=== PATIENT | male | born 1990 | race Hispanic/Latino ===

== ENCOUNTER → 2023-01-21 | Outpatient (CLI) | payer SELFPAY ==
--- NOTE | 2023-01-21 09:23 | US_ITS ---
STUDY: ABDOMINAL ULTRASOUND - RIGHT UPPER QUADRANT REASON FOR VISIT: Male, 32 years old RUQ PAIN TECHNIQUE: Ultrasound evaluation of the right upper quadrant was performed with real-time and static osorio-scale imaging. TECHNICAL QUALITY: Adequate. COMPARISON: None. FINDINGS: Liver: The liver measures 15.5 cm. There is increased echogenicity consistent with fatty infiltration. The bile ducts are within normal limits. There is hepatic color flow. The direction of portal flow is hepatopetal. There is no demonstrated mass lesion. Gallbladder: There is a contracted gallbladder. The gallbladder wall measures 2.5 mm. There is a positive sonographic Hall''s sign. There is no pericholecystic fluid. There are no gallstones. Common Bile Duct (C.B.D.): The common bile duct measures 7.1 mm. Pancreas: Normal size of the head, body and tail of the pancreas. There is normal echogenicity of the pancreas. There is no demonstrated pancreatic mass or cyst. Right Kidney: Normal size of the right kidney. The right kidney measures 10.6 x 4.3 x 5.7 cm. Normal renal cortex. The right cortex measures 1.9 cm. There is no demonstrated renal mass or cyst. There is no right hydronephrosis. US/Gallbladder IMPRESSION: There are equivocal signs of acute gallbladder disease. Gallbladder is contracted, with multiple gallstones, positive Hall sign, and biliary dilatation. However, there is no pericholecystic fluid or wall thickening. Please correlate with lab and physical exam. If these are also equivocal, consider HIDA scan for further evaluation Fatty liver, no discrete lesion Electronically Signed: Lance Valle MD at 15:18 EDT ,
== END | disposition home or self-care (01) ==
PROVIDERS: Referring Provider Family Medicine; Visit Provider Family Medicine
DX: R10.11 Right upper quadrant pain (principal)
CPT/HCPCS: 76705